=== PATIENT | female | born 1975 | race Caucasian/White ===

== ENCOUNTER → 2017-07-03 | Outpatient (CLI) | payer OTHER, MEDICAID ==
[2016-04-27 13:15] VITALS: BP 145/80
[~2017-07-03] MED LIST: CITA20TA5 PO; GABA600T2 PO; HYDR-965 PO; MELO7.5O PO; OXYC-328 PO; PANT40TA3 PO; TEMA15CA6 PO; TIZA4CAP PO; TOPI100T42 PO
--- NOTE | 2017-07-03 08:47 | KCIC ---
ABDOMEN COMPLETE History: Elevated liver function tests Comparison: May 02, 2016 Findings: Multiple sonographic images of the abdomen are submitted. Pancreas is not well-visualized due to bowel gas, also limited evaluation due to patient's body habitus. There is diffuse increased echogenicity of the liver parenchyma, no definitive hepatic mass demonstrated. Right lobe of the liver is estimated at 13.5 cm left jejunal. Right kidney measured 10.6 x 5.9 x 5.2 cm, no hydronephrosis. Left kidney measured 10.6 x 5.4 x 4.9 cm, no hydronephrosis. There has been cholecystectomy. Common bile duct, abdominal aorta, inferior vena cava is not well visualized on this exam. Spleen measured 11.2 cm. Impression: 1. Exam is limited due to bowel gas and patient's body habitus. There has been cholecystectomy. There is diffuse coarsening of the echotexture of the liver most commonly due to steatosis. Electronically signed by: Scott Wiggins MD (07/03/2017 8:44 AM) [id number]
== END | disposition home or self-care (01) ==
LOC: KCIC US 08:05
DX: R79.89 Other specified abnormal findings of blood chemistry (principal); K76.0 Fatty (change of) liver, not elsewhere classified; Z90.49 Acquired absence of other specified parts of digestive tract
CPT/HCPCS: 76700

== ENCOUNTER → 2019-01-22 | Outpatient (CLI) | payer OTHER, MEDICAID ==
[2016-04-27 13:15] VITALS: BP 145/80
[~2019-01-22] MED LIST changes: -CITA20TA5 PO; +CITA20TA6 PO; -GABA600T2 PO; +GABA600T7 PO; +HYDR-3165 PO; -HYDR-965 PO; -OXYC-328 PO; +OXYC1TAB22 PO
--- NOTE | 2019-01-22 17:11 | KCIC ---
Bilateral diagnostic digital mammograms with 3-D tomosynthesis: Reason for examination: Left breast lumps. History of bilateral breast reduction 8 years ago. Baseline exam. Bilateral mammograms in CC and oblique projections were obtained with 2-D imaging and 3-D tomosynthesis imaging on a Siemens Inspiration unit and reviewed on the workstation. Interpretation was made with the benefit of CAD. The skin and nipples show no abnormalities. No abnormal axillary lymph nodes are seen. The breast parenchyma shows scattered fatty and fibroglandular density. (Breast density: Category B.) There are postop changes from breast reduction. There are no dominant masses, suspicious calcifications or architectural distortion. Impression: No evidence of malignancy. Ultrasound to follow. BI-RAD Category 0: Incomplete. Needs additional imaging evaluation. Left breast ultrasound: Ultrasound examination was performed with attention to the areas of clinical concern and the axilla. In the 3:00 position 3 cm from the nipple, there is a small 4.4 mm hypoechoic circumscribed fibrocystic type lesion. No other cystic or solid lesions are seen. No abnormal appearing lymph nodes are seen in the axilla. IMPRESSION: Some minimal fibrocystic changes at the 3:00 position. No suspicious abnormality seen. Recommend 6 month follow-up with ultrasound. BI-RADS Category 3: Probably Benign. "Our facility is accredited by the [employer] Mammography Program." This patient's information has been entered into a reminder system for the patient to be notified with the results of her examination and a target date for the next mammogram. Electronically signed by: Ibeth Mcmahon MD (01/22/2019 5:08 PM) [id number]
== END | disposition home or self-care (01) ==
LOC: KCIC MAMMO 09:37
PROVIDERS: ATTEND Family Medicine
DX: N64.89 Other specified disorders of breast (principal); N64.4 Mastodynia
CPT/HCPCS: 76641; 77066; G0279; 77062

== ENCOUNTER → 2020-12-24 | Outpatient (CLI) | payer MEDICARE, MEDICAID ==
[2016-04-27 13:15] VITALS: BP 145/80
[~2020-12-24] MED LIST changes: +CONTRAST GIVEN. MC PRN; +IOHEXOL 240 MG/ML 50ML VIAL. PO ONE; +IOHEXOL 300 MG/ML 100ML VIAL. IV ONE; -PANT40TA3 PO; +PANT40TA77 PO
--- NOTE | 2020-12-24 17:08 | KCIC ---
INDICATION: Reason: ABDOMINAL PAIN AND BLOATING / Spl. Instructions: ORAL AND IV OMNI 300 100ML / His tory: . COMPARISON: None. TECHNIQUE: Axial CT images obtained through the abdomen and pelvis with contrast. One or more of the following individualized dose reduction techniques were utilized for this examinat ion: 1. Automated exposure control; 2. Adjustment of the mA and/or kV according to patient size; 3 . Use of iterative reconstruction technique. FINDINGS: Scattered calcific atherosclerosis without abdominal aortic aneurysm. Fat-containing left greater michael n right inguinal hernia. Oval shaped low-density structure adjacent to the left external iliac vessels measuring 25 x 14 mm. Liver is low density with postcholecystectomy changes. There is a subtle regional low density at the pancreatic tail measuring approximately 18 x 9 mm. Ther e is also some heterogenous low density in the pancreatic head and uncinate process. Spleen is mildly enlarged, 13 cm. No hydronephrosis. Urinary bladder is partially distended. A portion of the wall of the sigmoid colon appears thickened. Colonic diverticulosis. Small fat-conta ining umbilical hernia. No periappendiceal inflammatory changes. No dilated loops of bowel to suggest obstruction. Mild scoliotic curvature the spine with degenerative changes. This results in multilevel central taya l and neural foraminal stenosis. IMPRESSION: * There is some low density heterogeneity within the pancreas including within the head, uncinate pr ocess as well as the tail with focal regions of low density seen. Would correlate with symptoms withi n the region to ensure that this is not secondary to regions of edema from pancreatitis. A pancreatic lesion would be less likely in a patient of this age but if more complete characterization is desire d pancreatic protocol MRI could BE obtained to further evaluate these regions of low density. * Liver is low density which can be seen with fatty infiltration. * No evidence of bowel obstruction or appendicitis. * A portion of the sigmoid colon is not very distended with prominent thickness of the sigmoid colon wall. Could be secondary to a region of contraction but given this finding would correlate with symp toms given that a stricture or colonic mass is not excluded given this finding. There is not a signif icant amount of adjacent edema seen but alternative causes such as diverticulitis not excluded given the wall thickening. * Low-density lesion is seen adjacent to the left external iliac vessels. Could be from causes such as a small cyst within the area with alternative possible causes including small lymphocele or seroma . Electronically signed by: Cesar Tompkins MD (12/24/2020 5:06 PM) [id number]
== END ==
LOC: KCIC CT 08:59
PROVIDERS: ATTEND Internal Medicine Gastroenterology
DX: K40.90 Unilateral inguinal hernia, without obstruction or gangrene, not specified as recurrent (principal); K57.30 Diverticulosis of large intestine without perforation or abscess without bleeding; K42.9 Umbilical hernia without obstruction or gangrene; R16.1 Splenomegaly, not elsewhere classified; N32.89 Other specified disorders of bladder
CPT/HCPCS: 74177; Q9966; Q9967

== ENCOUNTER → 2021-01-24 | Outpatient (CLI) | payer MEDICARE, MEDICAID ==
[2016-04-27 13:15] VITALS: BP 145/80
[~2021-01-24] MED LIST changes: -CONTRAST GIVEN. MC PRN; -IOHEXOL 240 MG/ML 50ML VIAL. PO ONE; -IOHEXOL 300 MG/ML 100ML VIAL. IV ONE
--- NOTE | 2021-01-24 12:35 | KCIC ---
Abdominal MRI and MRCP without IV contrast. INDICATION: 45-year-old woman with history of abdominal pain and bloating and abnormal abdomen CT braulio wing low density lesions in the pancreas. COMPARISON: Contrast-enhanced abdomen and pelvis CT of 12/24/2020 TECHNIQUE: Multiplanar multisequence MR imaging of the abdomen was performed without IV contrast. Ulisses rosamaria T2-weighted MRCP images were also acquired. FINDINGS: Images are degraded by respiratory motion artifact and the technologist reports patient was unable to fully cooperate with breathing instructions because she was somnolent but arousable. Nevertheless, t he study provides diagnostically useful information. Hepatomegaly and diffuse hepatic steatosis is present with the liver measuring 20 cm in craniocaudal extent on the coronal T2 haste sequence and showing severe loss of signal on the opposed phase T1 seq uence. The gallbladder is surgically absent and there is no intrahepatic biliary dilation. Postcholecystecto my biliary prominence in the common bile duct is present to a maximum diameter of 9 mm at the daphne h epatis with gradual tapering in the pancreatic head. There is no evidence of choledocholithiasis. Thi s is confirmed on the MRCP images acquired. No biliary stricture or abnormal dilatation is identified . The pancreas also shows signal loss in the pancreatic head compatible with fatty infiltration. This c ould explain the areas of low density identified on recent abdomen CT. In addition, a 1.8 cm cyst in the pancreatic tail is also noted, more subtly present on comparison CT (image 16 of series on the fa t sat axial T2 haste sequence this exam compared with image 22 on axial series [address]) but is unchanged in the interval. No pancreatic ductal dilation. No peripancreatic soft tissue stranding or fluid collection. No abdominal adenopathy. No ascites. No mass. The spleen, adrenals and kidneys are unremarkable. Normal caliber abdominal aorta and IVC. The osseous structures reveal degenerative changes in the lumbar spine but no acute or aggressive ish earing osseous lesions noted. Included lung bases are unremarkable IMPRESSION: 1. Severe diffuse hepatic steatosis and hepatomegaly. 2. Areas of low attenuation in the pancreas on prior CT reflect a combination of fatty infiltration i n the pancreatic head, and a 1.8 cm pancreatic tail cyst. The ACR white paper on incidental pancreati c cystic lesions suggests imaging every year for 5 years and then every 2 years for an additional 4 y ears for a total of 9 years to document stability of lesions this size. If the cystic pancreatic lesi on grows to greater than 2.5 cm in that interval, endoscopic ultrasound and fine-needle aspiration wo uld be recommended. Otherwise, more frequent imaging as an alternative to endoscopic ultrasound could be pursued for growths up to less than 2.5 cm in size. 3. No evidence of choledocholithiasis status post cholecystectomy. Electronically signed by: Catherine Gandhi MD (01/24/2021 12:33 PM) [id number]
== END ==
LOC: KCIC MRI 08:33
PROVIDERS: ATTEND Internal Medicine Gastroenterology
DX: K76.0 Fatty (change of) liver, not elsewhere classified (principal); R16.0 Hepatomegaly, not elsewhere classified; M47.816 Spondylosis without myelopathy or radiculopathy, lumbar region; Z90.49 Acquired absence of other specified parts of digestive tract
CPT/HCPCS: 74181

== ENCOUNTER → 2021-09-07 | Outpatient (CLI) | payer MEDICARE, MEDICAID ==
[2016-04-27 13:15] VITALS: BP 145/80
--- NOTE | 2021-09-07 13:08 | KCIC ---
XR SHOULDER_RIGHT 2+ VIEWS DATE: 09/07/2021 10:17 AM INDICATION: Reason: Rt wrist and shoulder pain post fall. Previous wrist surgery 2010. / Spl. Instru ctions: / History: COMPARISON: None. FINDINGS: Bones: There is no evidence of acute fracture or dislocation. Joints: The joint spaces are normal. The acromiohumeral distance is not narrowed. Miscellaneous: No abnormal soft tissue calcifications in the shoulder. IMPRESSION: No evidence of acute fracture. Electronically signed by: Scott Nayak MD (09/07/2021 1:05 PM) RYANN
--- NOTE | 2021-09-07 13:11 | KCIC ---
XR RT WRIST 3VIEWS DATE: 09/07/2021 10:17 AM INDICATION: Rt wrist and shoulder pain post fall. Previous wrist surgery 2010. COMPARISON: 11/23/2014. FINDINGS: There is no evidence of acute fracture or dislocation. Postsurgical changes of distal ulna resection with radioulnar instrumentation and fixation. Postsurgi jannet changes of radiocarpal arthrodesis, with osseous fusion of the radius and first carpal row. Surgi jannet hardware is intact. IMPRESSION: No evidence of acute fracture. Electronically signed by: Scott Nayak MD (09/07/2021 1:08 PM) RYANN
== END ==
LOC: KCIC 10:11
PROVIDERS: ATTEND Nurse Practitioner
DX: M25.511 Pain in right shoulder (principal); M25.531 Pain in right wrist; Z98.890 Other specified postprocedural states; Z98.1 Arthrodesis status
CPT/HCPCS: 73030; 73110

== ENCOUNTER → 2021-09-07 | Outpatient (CLI) | payer MEDICARE, MEDICAID ==
[2016-04-27 13:15] VITALS: BP 145/80
--- NOTE | 2021-09-07 15:44 | KCIC ---
EXAM: XR CHEST 2V 09/07/2021 10:21 AM CLINICAL INDICATION: Pneumonia due to Covid COMPARISON: None TECHNIQUE: PA and lateral views of the chest FINDINGS: The heart is normal in size. Lungs are adequately expanded. There are ill-defined patchy o pacities in the left lung base. The right lung is clear. There is calcified granuloma in the mid left lung. No pleural effusion or pneumothorax. There is lower cervical fusion hardware. S-shaped scolios is of the thoracic spine with degenerative disc disease. IMPRESSION: Ill-defined patchy opacities in the left lung base could be pneumonia or atelectasis. Electronically signed by: Kim Pickett MD (09/07/2021 3:42 PM) [id number]
== END ==
LOC: KCIC 10:19
PROVIDERS: ATTEND Family Medicine
DX: J84.10 Pulmonary fibrosis, unspecified (principal); R91.8 Other nonspecific abnormal finding of lung field; J12.82 Pneumonia due to coronavirus disease 2019; M41.84 Other forms of scoliosis, thoracic region; M51.34 Other intervertebral disc degeneration, thoracic region; Z98.1 Arthrodesis status
CPT/HCPCS: 71046

== ENCOUNTER → 2021-10-05 | Outpatient (CLI) | payer MEDICARE, MEDICAID ==
[2016-04-27 13:15] VITALS: BP 145/80
--- NOTE | 2021-10-05 13:15 | KCIC ---
CT of the chest without contrast 10/05/2021 INDICATION: Pulmonary infiltrates. History of Covid pneumonia COMPARISON STUDY: Chest radiograph September 07 2021 TECHNIQUE: Multidetector CT imaging of the chest performed without contrast FINDINGS: Heart size is normal. No pericardial effusion is seen. No pathologically enlarged mediastin al adenopathy is identified on noncontrast enhanced imaging. Calcified lymph nodes in left hilum note d. There is no pneumothorax, pleural effusion, or acute appearing infiltrate. Calcified granuloma not ed in the left upper lobe. Limited visualization of the upper abdomen demonstrates low-attenuation of the liver likely hepatic steatosis. Degenerative changes of the thoracic spine are seen likely relat ed to significant S-shaped thoracolumbar scoliosis. No acute osseous changes are seen. Impression: 1. No evidence of acute cardiopulmonary process 2. Hepatic steatosis. Finding also noted on MRI exam from January 24, 2021 CT DOSING PQRS STATEMENT: One or more of the following individualized dose reduction techniques were utilized for this examinat ion: 1. Automated exposure control 2. Adjustment of the mA and/or kV according to patient size 3. Use of iterative reconstruction technique Electronically signed by: Lionel Lang MD (10/05/2021 1:13 PM) [id number]
== END ==
LOC: KCIC CT 12:38
PROVIDERS: ATTEND Family Medicine
DX: K76.0 Fatty (change of) liver, not elsewhere classified (principal); J84.10 Pulmonary fibrosis, unspecified; I89.8 Other specified noninfective disorders of lymphatic vessels and lymph nodes; R91.8 Other nonspecific abnormal finding of lung field; M47.814 Spondylosis without myelopathy or radiculopathy, thoracic region
CPT/HCPCS: 71250

== ENCOUNTER → 2022-03-24 | Outpatient (CLI) | payer MEDICARE, MEDICAID ==
[2016-04-27 13:15] VITALS: BP 145/80
[~2022-03-24] MED LIST changes: +BUPIVACAINE MPF 0.5% 10 ML VIAL. INT ART ONE; +LIDOCAINE 1% Multi-Dose 20 ML VIAL. ID ONE; +TRIAMCINOLONE PRES.FREE 40 MG/ML VIAL. INT ART ONE
--- NOTE | 2022-03-24 14:58 | KCIC ---
EXAM: Right bicipital groove injection WITH Fluoroscopic guidance DATE: 03/24/2022 1:33 PM CLINICAL HISTORY: Reason: Rt shoulder pain since 07/26. Pain w/certain arm movements COMPARISON: None pertinent TECHNIQUE: The patient was informed of the indications and alternatives for this procedure as well as risks and benefits. No immediate contraindication identified. The patient provided informed, written consent. Laterality was confirmed by the entire team following a time out. Following initial Right bicipital groove localization, a suitable area was sterilely prepped and drap ed. Local anesthesia was administered with 1% xylocaine. With intermittent fluoroscopic observation, a 22-gauge spinal needle was advanced into the Right bicipital groove sheath/capsule with confirmatio n of intra-synovial position with infusion of less than 3 cc room air. Subsequent infusion solution c ontaining 1 mL lidocaine 1 percent, 1 mL 40 mg/mL Kenalog, and 2 mL bupivacaine 0.5 percent per clini jannet request. Hemostasis with local pressure. Local clinical exam negative for immediate complication. Patient informed re local potential signs or symptoms that may indicate need to return to ER/Ordering physician for further evaluation. Patient informed re precautionary measures after intra-synovial in jection of anesthetic. Patient informed re potential for short term increase local symptomatology due to steroid flare. Patient expressed understanding. Performing Physicians: Dr. Saturnino Thompson Blood Loss: 0 cc Total Fluoroscopy time: 14 seconds Total images taken: 2 Pre-procedural Pain Scale: 9 Post-procedural Pain Scale: 6 IMPRESSION: Successful intra-synovial injection Right bicipital groove with steroid and anesthetic per clinical r equest. Electronically signed by: Bull Thompson MD (03/24/2022 2:56 PM) [id number]
== END | disposition home or self-care (01) ==
LOC: KCIC 13:31
PROVIDERS: ATTEND Orthopaedic Surgery Sports Medicine
DX: M25.511 Pain in right shoulder (principal); F32.9 Major depressive disorder, single episode, unspecified; Z90.710 Acquired absence of both cervix and uterus; Z98.890 Other specified postprocedural states; Z79.899 Other long term (current) drug therapy; Z88.0 Allergy status to penicillin; Z88.1 Allergy status to other antibiotic agents; Z88.8 Allergy status to other drugs, medicaments and biological substances
CPT/HCPCS: 20610; 77002; J3301; J3490